=== PATIENT | male | born 1990 | race American Indian/Alaskan Native ===

== ENCOUNTER 2016-11-28 18:11 | Emergency (ER) | payer SELFPAY ==
--- NOTE | 2016-11-28 18:17 | Emergency Department Report ---
Stated Complaint: SORE THROAT/CHEST PAIN Time Seen by Provider: 11/28/16 18:14 - HPI History of Present Illness: PT c/o sore throat x 4 days PT states his throat is swollen - ROS Review of Systems: + sore throat + cough - Exam Physical Exam: tonsilar hypertrophy no exudate noted MSE screening note: Focused history and physical exam performed. Due to findings the following was ordered: labs ED Disposition for MSE Condition: Stable
[2016-11-28 18:21] VITALS: BP 153/89
== END 2016-11-28 20:32 | disposition left against medical advice (07) ==
LOC: ED 18:11
DX: R05 Cough (principal); J02.9 Acute pharyngitis, unspecified; Z53.21 Procedure and treatment not carried out due to patient leaving prior to being seen by health care provider
CPT/HCPCS: 87116; 87430

== ENCOUNTER 2021-03-11 17:50 | Emergency (ER) | payer SELFPAY ==
[2021-03-11 19:11] VITALS: BP 150/89
--- NOTE | 2021-03-11 19:16 | Emergency Department Report ---
ED ENT HPI - General Chief complaint: Dental/Oral Stated complaint: HEADACHE Time Seen by Provider: 03/11/21 19:05 Source: patient Mode of arrival: Ambulatory Limitations: No Limitations - History of Present Illness Initial comments: Patient is a 30-year-old male presents emergency room complaints of left upper and left dental pain for approximately 1 month. He states he has not seen a dentist in 2 years. He denies any facial swelling, difficulty swallowing, difficulty breathing, fever, nausea, vomiting, chills. Patient denies past medical history. Allergy to penicillin. - Related Data Previous Rx's Medication Instructions Recorded Last Taken Type Chlorhexidine Mouthwash [Peridex] 15 ml MM BID #1 bottle 03/11/21 Unknown Rx Naproxen 500 mg PO BID PRN #20 tablet 03/11/21 Unknown Rx Allergies Allergy/AdvReac Type Severity Reaction Status Date / Time Penicillins Allergy Unknown Verified 03/11/21 18:08 ED Dental HPI - General Chief complaint: Dental/Oral Stated complaint: HEADACHE Time Seen by Provider: 03/11/21 19:05 Source: patient Mode of arrival: Ambulatory Limitations: No Limitations - Related Data Previous Rx's Medication Instructions Recorded Last Taken Type Chlorhexidine Mouthwash [Peridex] 15 ml MM BID #1 bottle 03/11/21 Unknown Rx Naproxen 500 mg PO BID PRN #20 tablet 03/11/21 Unknown Rx Allergies Allergy/AdvReac Type Severity Reaction Status Date / Time Penicillins Allergy Unknown Verified 03/11/21 18:08 ED Review of Systems ROS: Stated complaint: HEADACHE Other details as noted in HPI Comment: All other systems reviewed and negative ED Past Medical Hx - Past Medical History Previous Medical History?: Yes - Surgical History Past Surgical History?: No - Social History Smoking Status: Current Every Day Smoker Substance Use Type: Marijuana - Medications Home Medications: Home Medications Medication Instructions Recorded Confirmed Last Taken Type Chlorhexidine Mouthwash [Peridex] 15 ml MM BID #1 bottle 03/11/21 Unknown Rx Naproxen 500 mg PO BID PRN #20 tablet 03/11/21 Unknown Rx ED Physical Exam - General Limitations: No Limitations General appearance: alert, in no apparent distress - Head Head exam: Present: atraumatic, normocephalic - Eye Eye exam: Present: normal appearance - ENT ENT exam: Present: mucous membranes moist, other (dental caries present, there is a partially cracked left lower back molar, there is a mostly mising right lower premolar, no induration or edema of the gumline, no facial edema, uvula is midline, no uvular edema or deviation, no trismus, no tongue elevation, no muffled voice) - Respiratory Respiratory exam: Present: normal lung sounds bilaterally. Absent: respiratory distress, wheezes, rales, rhonchi, stridor, chest wall tenderness, accessory muscle use, decreased breath sounds, prolonged expiratory - Cardiovascular Cardiovascular Exam: Present: regular rate, normal rhythm, normal heart sounds. Absent: systolic murmur, diastolic murmur, rubs, gallop - Neurological Exam Neurological exam: Present: alert, oriented X3 - Psychiatric Psychiatric exam: Present: normal affect, normal mood - Skin Skin exam: Present: warm, dry, intact ED Course Vital Signs 03/11/21 03/11/21 18:11 19:09 Temperature 98.4 F 98.6 F Pulse Rate 57 L 58 L Respiratory 16 14 Rate Blood Pressure 179/97 150/89 [Right] O2 Sat by Pulse 99 99 Oximetry ED Medical Decision Making - Lab Data Vital Signs 03/11/21 03/11/21 18:11 19:09 Temperature 98.4 F 98.6 F Pulse Rate 57 L 58 L Respiratory 16 14 Rate Blood Pressure 179/97 150/89 [Right] O2 Sat by Pulse 99 99 Oximetry - Medical Decision Making Patient is a 30-year-old male presents emergency room complaints of left upper and left dental pain for approximately 1 month. He states he has not seen a dentist in 2 years. He denies any facial swelling, difficulty swallowing, difficulty breathing, fever, nausea, vomiting, chills. Patient denies past medical history. Allergy to penicillin. On exam:dental caries present, there is a partially cracked left lower back molar, there is a mostly mising right lower premolar, no induration or edema of the gumline, no facial edema, uvula is midline, no uvular edema or deviation, no trismus, no tongue elevation, no muffled voice. No signs of infected dental caries, dental abscess, facial cellulitis, facial abscess, or Thierno's at this time. Patient given prescription for medications. Patient given community dental clinic list. Advised patient Please take medication as prescribed as needed. May gargle with warm salt water. Follow-up with a dentist. Return to emergency room for any new or worsening symptoms. Critical care attestation.: If time is entered above; I have spent that time in minutes in the direct care of this critically ill patient, excluding procedure time. ED Disposition Clinical Impression: Dental caries, Dentalgia Disposition: 01 HOME / SELF CARE / HOMELESS Is pt being admited?: No Does the pt Need Aspirin: No Condition: Stable Additional Instructions: Please take medication as prescribed as needed. May gargle with warm salt water. Follow-up with a dentist. Return to emergency room for any new or worsening symptoms. Prescriptions: Naproxen 500 mg PO BID PRN #20 tablet PRN Reason: pain Chlorhexidine Mouthwash [Peridex] 15 ml MM BID #1 bottle Referrals: [facility] [Outside] - 3-5 Days Time of Disposition: 19:15 Print Language: LAO
== END 2021-03-11 19:29 | disposition home or self-care (01) ==
LOC: ED 17:50
DX: K02.9 Dental caries, unspecified (principal); F17.200 Nicotine dependence, unspecified, uncomplicated; F12.90 Cannabis use, unspecified, uncomplicated; Z98.890 Other specified postprocedural states; Z79.899 Other long term (current) drug therapy
CPT/HCPCS: 99282